=== PATIENT | female | born 1985 | race African-American/Black ===

== ENCOUNTER 2019-02-15 13:32 | Inpatient (IN) | payer OTHER ==
[2019-02-15] MEDS ORDERED: BICITRA PO ONE (13:47)
[2019-02-15] MEDS ORDERED: PEPCID IV ONE ×2 (13:47→16:01)
[2019-02-15] MEDS ORDERED: REGLAN IV ONE (13:47)
--- NOTE | 2019-02-15 13:52 | History and Physical Report ---
History of Present Illness Date of examination: 02/15/19 Date of admission: 02/15/19 13:32 Chief complaint: sent from [facility] for delivery History of present illness: Pt is a 33 year old female primigravida JUAN 02/23/19 at 38w6d with known breech presentation who presents from [facility] for delivery secondary to oligohydramnios. She reports good movement and denies vaginal bleeding or leakage of fluid. She has had care at [facility] since transfer into care at 18 wks with comanagement by [facility] complicated by gestational diabetes A1, second trimester bleeding, malpresentation, IUGR which has resolved since 11/03/18 (most recent EFW 2234g (17%ile) on 01/18/19). She is GBS negative. Past History Past Medical History: diabetes (gestational, diet controlled ) Past Surgical History: no surgical history Family/Genetic History: none Social history: no significant social history, - Obstetrical History Expected Date of Delivery: 02/23/19 Actual Gestation: 38 Week(s) 6 Day(s) : 1 Medications and Allergies Allergies Allergy/AdvReac Type Severity Reaction Status Date / Time No Known Allergies Allergy Unverified 09/11/18 11:07 Home Medications Medication Instructions Recorded Confirmed Last Taken Type Pnv Plus Multivit Tab 1 bottle PO ONCE 02/15/19 02/15/19 02/15/19 History Active Meds: Active Medications Citric Acid/Sodium Citrate (Bicitra) 30 ml PO ONCE ONE Stop: 02/15/19 13:48 Famotidine (Pepcid) 20 mg IV ONCE ONE Stop: 02/15/19 13:48 Oxytocin/Sodium Chloride (Pitocin/Ns 20 Unit/1000ml Drip) 20 units in 1,000 mls @ 0 mls/hr IV TITR MARCIANO Lactated Ringer's (Lactated Ringers) 1,000 mls @ 2,250 mls/hr IV PREOP MARCIANO Stop: 02/16/19 14:27 Cefazolin Sodium (Ancef/Sterile Water 2 Gm/20 Ml) 2 gm in 20 mls @ 80 mls/hr IV PREOP NR; Protocol Metoclopramide HCl (Reglan) 10 mg IV ONCE ONE Stop: 02/15/19 13:48 Review of Systems All systems: negative - Physical Exam Breasts: Positive: deferred Abdomen: Positive: soft (gravid) Genitourinary (Female): Positive: normal external genitalia Uterus: Positive: enlarged (gravid ) Extremities: Positive: edema (trace ) - Obstetrical FHR: auscultation normal Uterine Contraction Monitor Mode: External Uterine Contraction Pattern: Absent Uterine Tone Measurement Phase: Resting Results All other labs normal. Assessment and Plan A: IUP at 38w6d Oligohydramnios Malpresentation Gestational Diabetes A1 GBS Negative P: Accuchek Routine admission labs Proceed with primary section and other indicated procedures
[2019-02-15] MEDS ORDERED: PITOCin/NS 20 UNIT/1000ML DRIP 20 UNITS/1,000 ML BAG IV SCH ×2 (14:00→21:58)
[2019-02-15] MEDS ORDERED: ANCEF/STERILE WATER 2 GM/20 ML 2 GM/20 ML SYRINGE IV NR (14:00)
[2019-02-15] MEDS: LACTATED RINGERS 1,000 ML IV SCH ×2 (14:28→15:26)
[2019-02-15 14:55] LABS: Basophils % (Auto) 0.3 % (0.0-1.8); Eosinophils # (Auto) 0.1 K/mm3 (0.0-0.4); Eosinophils % (Auto) 0.8 % (0.0-4.3); Hematocrit 42.5 % (30.3-42.9); Hemoglobin 14.8 gm/dl (10.1-14.3); Lymphocytes # (Auto) 1.8 K/mm3 (1.2-5.4); Lymphocytes % (Auto) 24.5 % (13.4-35.0); Mean Corpuscular HGB Conc 35 % (30-34); Mean Corpuscular Volume 94 fl (79-97); Monocytes # (Auto) 0.4 K/mm3 (0.0-0.8); Monocytes % (Auto) 5.8 % (0.0-7.3); Platelet Count 223 K/mm3 (140-440); Red Blood Count 4.53 M/mm3 (3.65-5.03); Red Cell Distribution Width 13.5 % (13.2-15.2)
[2019-02-15] MEDS ORDERED: BICITRA ONE (16:00)
[2019-02-15] MEDS ORDERED: REGLAN ONE (16:01)
--- NOTE | 2019-02-15 16:11 | Anesthesia Consultation ---
Anesthesia Consult and Med Hx Date of service: 02/15/19 - Airway Anesthetic Teeth Evaluation: Good ROM Head & Neck: Adequate Mental/Hyoid Distance: Adequate Mallampati Class: Class II Intubation Access Assessment: Probably Good - Pulmonary Exam CTA: Yes - Cardiac Exam Cardiac Exam: RRR - Pre-Operative Health Status ASA Pre-Surgery Classification: ASA3 Proposed Anesthetic Plan: Spinal - Pulmonary Hx Asthma: No COPD: No Hx Pneumonia: No - Cardiovascular System Hx Hypertension: No - Central Nervous System Hx Seizures: No Hx Psychiatric Problems: No - Endocrine Hx Renal Disease: No Hx End Stage Renal Disease: No Hx Non-Insulin Dependent Diabetes: Yes (Gestational) Hx Hypothyroidism: No Hx Hyperthyroidism: No - Hematic Hx Anemia: No Hx Sickle Cell Disease: No - Other Systems Hx Alcohol Use: No
--- NOTE | 2019-02-15 16:12 | Anesthesia Day of Surgery ---
Anesthesia Day of Surgery - Day of Surgery Patient Examined: Yes Patient H&P Reviewed: Yes Patient is NPO: Yes
[2019-02-15] MEDS ORDERED: ZOFRAN ONE (16:27)
[2019-02-15] MEDS ORDERED: MARCAINE 0.5% INFILTRATI ONE (16:27)
[2019-02-15] MEDS ORDERED: DEXMEDETOMIDINE IV ONE (16:27)
[2019-02-15] MEDS ORDERED: NACL 0.9% IR ONE (17:00)
[2019-02-15] MEDS ORDERED: WATER FOR IRRIG STERILE IR ONE (17:00)
[2019-02-15] MEDS ORDERED: LACTATED RINGERS 1,000 ML ONE (17:12)
[2019-02-15] MEDS ORDERED: HESPAN 500 ML IV ONE (17:58)
--- NOTE | 2019-02-15 18:20 | Procedure Note ---
OB Delivery Note - Delivery Date of Delivery: 02/15/19 Surgeon: USAMA CALLEJAS Estimated blood loss: other (800 mL) - Section Preop diagnosis: breech, other (IUGR, Oligohydrmanios, GDMA1 ) Postop diagnosis: same section procedure: section, primary low transverse Disposition: PACU Complications: none Narrative: Please see operative report. - A at 1 minute: 8 at 5 minutes: 9 Infant Gender: Female (2380g (5lb 4oz) @ 1734 pm)
--- NOTE | 2019-02-15 18:20 | Operative Report ---
Operative Report Operative Report: Date of procedure: December Preoperative diagnosis: 1) IUP at 38w6d 2)Oligohydramnios 3) IUGR 4) Malpres entation 5) GDMA1 Postoperative diagnosis: Same Procedure:Primary low transverse section Surgeon: Tabby Kirk M.D. Anesthesia: Regional Findings: 1) Viable female , Apgars 8 and 9, weight 2380g, (5 lb 4 oz) in srinivasa breech presentation. 2) Normal-appearing uterus ovaries and tubes Estimated blood loss: 800 mL IV fluids:1000 mL Urine output: 100 mL, clear at the end of the procedure Drains: Nguyen to gravity Specimens: Placenta to pathology Complications:None.Counts correct x 3 Disposition: Stable to PACU Indication for procedure: Pt is a 33 year old female primigravida at 38w6d who was sent for delivery secondary to oligohydramnios, IUGR and malpresentation. Operation in detail: After the risks, benefits, alternatives and complications were explained to the patient she gave informed consent for the procedure. She was subsequently taken to the operating room where regional anesthesia was noted to be adequate. She was subsequently placed in the dorsal supine position with leftward tilt and prepped and draped in a normal sterile fashion. heart tones were noted to be in the 125s prior to incision. A timeout was performed. A Pfannenstiel skin incision was made with the knife and carried down to the layer of the fascia with the Bovie. The fascia was incised in the midline and the fascial incision was extended bilaterally with the Bovie. The fascial incision was then stretched. The rectus muscles were then in the midline. The peritoneum was then entered bluntly. The peritoneal incision was extended with good visualization of the bladder. The peritoneal incision was then stretched. An Ric retractor was placed. The bladder blade was placed. The vesicouterine peritoneum was grasped with smooth pickups and incised with Metzenbaum scissors. Metzenbaum scissors were used to extend the incision bilaterally. The bladder flap was then created digitally and the bladder blade was replaced. A transverse incision was made in the lower uterine segment with a knife and extended bilaterally with the bandage scissors. The buttocks were delivered up to the sacrum then the fetus was covered with a towel. The legs were each delivered, followed by the torsoe and arms and finally the head without difficulty. was bulb suctioned at delivery. The cord was clamped and cut and the was handed to NICU staff in attendance. Cord blood was collected. The placenta was then delivered manually. The uterus was then exteriorized and cleared of all clots and debris. The hysterotomy was then reapproximated with 0 Vicryl in a running locked fashion. A second layer of the same suture was used in imbricating fashion. An additional figure of eight was used at the left apex of the hysterotomy for additional hemostasis. The hysterotomy was inspected and hemostasis was noted. The gutters were irrigated and cleared of all clots and debris. The hysterotomy was again inspected and noted to be hemostatic. Surgicel was placed over the hysterotomy. The peritoneum was reapproximated with 2-0 Vicryl in a running fashion incorporating the rectus muscles. The rectus muscles were covered with Surgicel. The fascia was reapproximated with 0 Vicryl in a running fashion. The subcutaneous tissue was reapproximated with 3-0 Vicryl in a running fashion. The skin was reapproximated with 4-0 Vicryl in a subcuticular fashion. The incision was then covered with steri strips and a pressure dressing. The procedure was then ended. The patient tolerated the procedure well and was taken to the PACU in stable condition. All instrument, lap, and needle counts were correct 3.
[2019-02-15] MEDS ORDERED: PHENERGAN PR PRN (18:36)
[2019-02-15] MEDS ORDERED: NARCAN 0.4 MG/1 ML IV PRN ×2 (18:36→21:58)
[2019-02-15] MEDS ORDERED: PHENERGAN PO PRN (18:36)
[2019-02-15] MEDS ORDERED: ZOFRAN IV PRN ×2 (18:36→21:58)
[2019-02-15] MEDS ORDERED: NUBAIN IV PRN (18:36)
--- NOTE | 2019-02-15 18:36 | Post Anesthesia Evaluation ---
- Post Anesthesia Evaluation Patient Participated: Yes Airway Patent: Yes Stable Respiratory Function: Yes Nausea/Vomiting: No Temp > 96.8F: Yes Pain Manageable: Yes Adequeate Hydration: Yes Anesthesia Complications: No Block Receding Appropriately: Yes
[2019-02-15] MEDS: TYLENOL PO SCH (19:00)
[2019-02-15] MEDS ORDERED: IBUPROFEN PO SCH (19:00)
[2019-02-15] MEDS ORDERED: LANSINOH TP PRN (21:58)
[2019-02-15] MEDS ORDERED: MORPHINE IV PRN ×2 (21:58)
[2019-02-15] MEDS ORDERED: D5LR 1,000 ML IV SCH (21:58)
[2019-02-15] MEDS ORDERED: MILK OF MAGNESIA PO PRN (21:58)
[2019-02-15] MEDS ORDERED: SODIUM CHLORIDE FLUSH SYRINGE 10 ML IV PRN (21:58)
[2019-02-15] MEDS ORDERED: TUCKS PAD TP PRN (21:58)
[2019-02-15] MEDS ORDERED: TYLENOL PO PRN (21:58)
[2019-02-15] MEDS ORDERED: MYLICON PO PRN (21:58)
[2019-02-16] MEDS: TORADOL IV SCH ×3 (00:16→10:30)
[2019-02-16] MEDS: ANCEF/NS 1 GM/50 ML 1 GM/50 ML BAG IV SCH ×2 (00:27→08:28)
[2019-02-16] MEDS: TYLENOL PO SCH ×3 (01:00→13:00)
[2019-02-16 06:10] LABS: Hematocrit 32.2 % (30.3-42.9)
[2019-02-16] MEDS: FEOSOL PO SCH (10:30)
--- NOTE | 2019-02-16 12:44 | Progress Note ---
Assessment and Plan A/P POD1 s/p csec doine well DBD normal routine pP care Subjective - Subjective Date of service: 02/16/19 Principal diagnosis: s/p cse Patient reports: appetite normal, voiding normally, pain well controlled, flatus, ambulating normally [place]: doing well Objective - Vital Signs Latest vital signs: Vital Signs Temp Pulse Resp BP BP Pulse Ox 02/16/19 07:31 99.1 F 79 18 88/34 02/16/19 04:00 98 F 60 16 99/67 02/15/19 23:30 98.4 F 78 18 96/63 02/15/19 20:15 98.5 F 72 18 92/62 98 02/15/19 19:15 98.4 F 64 52 H 100/55 100 02/15/19 19:00 97.8 F 65 13 96/57 100 02/15/19 18:45 64 18 84/57 100 02/15/19 18:40 62 18 93/56 99 02/15/19 18:35 63 18 84/51 100 02/15/19 18:30 62 18 86/39 100 02/15/19 16:18 62 100 02/15/19 16:13 68 99 02/15/19 16:08 68 100 02/15/19 16:03 63 100 02/15/19 15:58 63 100 02/15/19 15:53 70 99 02/15/19 15:48 67 99 02/15/19 15:43 65 99 02/15/19 15:38 64 99 02/15/19 15:33 64 99 02/15/19 14:03 97.3 F L 72 20 107/69 100 02/15/19 14:00 72 107/69 02/15/19 13:57 66 100 02/15/19 13:52 62 100 Intake and Output 02/15/19 02/16/19 02/16/19 23:59 07:59 15:59 Intake Total 1000 530 Output Total 100 400 Balance 900 130 Intake: IV 1000 50 ANCEF/NS 1 GM/50 ML 1 gm 50 In 50 ml @ 100 mls/hr IV Q8H [facility] Rx#:[id number] Oral 480 Output: Urine 100 400 Indwelling Catheter 400 Other: Total, Intake Amount 480 Total, Output Amount 400 Estimated Blood Loss 800 - Exam Breasts: Present: normal Cardiovascular: Present: Regular rate, Normal S1 Lungs: Present: Clear to auscultation, Normal air movement Abdomen: Present: normal appearance, soft, normal bowel sounds. Absent: distention, tenderness, guarding Vulva: both: normal Uterus: Present: normal, firm, fundal height below umbilicus. Absent: bogginess, tenderness Extremities: Present: normal Deep Tendon Reflex Grade: Normal +2 Incision: Present: normal, dry, intact - Labs Labs: Abnormal lab results 02/15/19 02/15/19 Range/Units 14:00 14:46 Hgb 14.8 H (10.1-14.3) gm/dl MCH 33 H (28-32) pg MCHC 35 H (30-34) % POC Glucose 66 L (70-105)
[2019-02-16] MEDS: PERCOCET 5/325 PO PRN ×2 (13:17→19:46)
[2019-02-16] MEDS ORDERED: M-M-R II VACCINE SUB-Q ONE (18:26)
[2019-02-17] MEDS: IBUPROFEN PO PRN ×4 (00:06→18:03)
[2019-02-17] MEDS ORDERED: BOOSTRIX IM ONE (06:00)
--- NOTE | 2019-02-17 08:47 | Progress Note ---
Assessment and Plan POD2 s/p primary LTCS Labs and vital signs stable Needs abdominal binder Discharge to home tomorrow Subjective - Subjective Date of service: 02/17/19 Principal diagnosis: s/p csec Interval history: Pt is POD2 s/p primary LTCS for oligohydramnios and breech presentation. Patient reports: appetite normal, voiding normally, pain well controlled, flatus, ambulating normally : doing well, bottle feeding Objective - Vital Signs Latest vital signs: Vital Signs Temp Pulse Resp BP 02/17/19 00:00 98.8 F 74 18 99/67 02/16/19 16:41 97.9 F 66 18 92/56 Intake and Output 02/16/19 02/17/19 02/17/19 23:59 07:59 15:59 Intake Total 780 200 Output Total 1500 Balance -720 200 Intake: Oral 480 200 Intake, Free Water 300 Output: Urine 1500 Void 1500 Other: Total, Intake Amount 480 200 Total, Output Amount 1500 # Voids Void 1 1 - Exam Lungs: Present: Normal air movement Abdomen: Present: normal appearance, soft Uterus: Present: normal, firm, fundal height below umbilicus Extremities: Present: normal Incision: Present: dressed
[2019-02-17] MEDS: FEOSOL PO SCH (09:32)
[2019-02-17] MEDS: PERCOCET 5/325 PO PRN (23:30)
[2019-02-18] MEDS: IBUPROFEN PO PRN (05:33)
--- NOTE | 2019-02-18 09:05 | Progress Note ---
Assessment and Plan A: POD#3 s/p primary at term secondary to IUGR, Oligohydramnios and Malpresentation P: Discharge later today with follow up in [address] Kirk for incision check. Subjective - Subjective Date of service: 02/18/19 Principal diagnosis: s/p csec, gestational diabetes Interval history: No overnight events. + flatus. No Bowel movement. Tolerating regular diet. Patient reports: appetite normal, voiding normally, pain well controlled, flatus, ambulating normally, no bowel movement [place]: doing well Objective - Vital Signs Latest vital signs: Vital Signs Temp Pulse Resp BP Pulse Ox 02/18/19 06:33 18 02/18/19 05:33 18 02/18/19 00:30 18 02/17/19 23:31 97.9 F 77 18 91/55 95 02/17/19 23:30 18 02/17/19 17:07 98.1 F 85 18 107/65 98 Intake and Output 02/17/19 02/18/19 02/18/19 22:59 06:59 14:59 Intake Total 240 360 Balance 240 360 Intake: Intake, Free Water 240 360 Other: # Voids Void 3 1 - Exam Breasts: Present: deferred Cardiovascular: Present: Regular rate Lungs: Present: Clear to auscultation Abdomen: Present: soft, distention (mild ), normal bowel sounds Uterus: Present: fundal height below umbilicus Extremities: Present: normal Incision: Present: intact
--- NOTE | 2019-02-18 09:09 | Discharge Summary ---
Providers - Providers Date of Admission: 02/15/19 13:32 Date of discharge: 02/18/19 Attending physician: USAMA CALLEJAS Primary care physician: USAMA CALLEJAS Hospitalization Reason for admission: section (IUGR, Oligohydramnios, Malpresentation ) Delivery: Procedure: section, primary low transverse Procedure details: Please see operative report. Incision: intact Other procedures: none complications: none Discharge diagnosis: IUP at term delivered baby: female Hospital course: Pt was admitted for primary section at 38 wks secondary to oligohydramnios, IUGR and malpresentation which she tolerated well. Her postoperative course was uncomplicated and she met discharge criteria on POD#3. She will follow up in 2 wks in the office for an incision check. Condition at discharge: Stable Disposition: DC-01 TO HOME OR SELFCARE - Discharge Diagnoses (1) Term of female Status: Acute (2) S/P section Status: Acute (3) IUGR (intrauterine growth restriction) Status: Acute (4) Oligohydramnios in third trimester Status: Acute Qualifiers: Fetus number: single or unspecified fetus Qualified Code(s): O41.03X0 - Oligohydramnios, third trimester, not applicable or unspecified (5) Malpresentation of fetus Status: Acute Qualifiers: malpresentation type: breech Fetus number: single or unspecified fet us Qualified Code(s): O32.1XX0 - Maternal care for breech presentation, not applicable or unspecified (6) Gestational diabetes Status: Acute Qualifiers: Gestational diabetes mellitus control: diet-controlled Trimester: third trimester Qualified Code(s): O24.410 - Gestational diabetes mellitus in , diet controlled Plan - Discharge Medications Prescriptions: Ferrous Sulfate [Feosol 325 MG tab] 325 mg PO BID #60 tablet Ibuprofen [Motrin] 800 mg PO Q8HR PRN #30 tablet PRN Reason: Pain, Moderate (4-6) oxyCODONE /ACETAMINOPHEN [Percocet 5/325] 1 tab PO Q6HR PRN #40 tablet PRN Reason: Pain oxyCODONE /ACETAMINOPHEN [Percocet 5/325] 1 tab PO Q6HR PRN #30 tablet PRN Reason: Pain oxyCODONE /ACETAMINOPHEN [Percocet 5/325] 1 tab PO Q6HR PRN #40 tablet PRN Reason: Pain - Provider Discharge Summary Activity: routine, no sex for 6 weeks, no heavy lifting 4 weeks, no strenuous exercise Diet: routine Instructions: routine Additional instructions: [] Smoking cessation referral if applicable(refer to patient education folder for contact #) [] Refer to [facility]'s [facility] Booklet Call your doctor immediately for: * Fever > 100.5 * Heavy vaginal bleeding ( >1 pad per hour) * Severe persistent headache * Shortness of breath * Reddened, hot, painful area to leg or breast * Drainage or odor from incision. * Keep incision clean and dry at all times and follow doctor's instructions regarding bathing/showering - Follow up plan Follow up: USAMA CALLEJAS MD [Primary Care Provider] - 03/01/19 (Please call to schedule your postoperative appt )
[2019-02-18] MEDS ORDERED: MILK OF MAGNESIA PO SCH (09:30)
[2019-02-18] MEDS: FEOSOL PO SCH (12:41)
[2019-02-18] MEDS: PERCOCET 5/325 PO PRN (12:42)
[2019-02-18 13:19] VITALS: BP 117/75
== END 2019-02-18 15:15 | disposition home or self-care (01) | DRG 787 ==
LOC: APU 13:32 → OB 20:32
PROVIDERS: ADMIT Obstetrics & Gynecology; ATTEND Obstetrics & Gynecology
PROC: 10D00Z1 Extraction of Products of Conception, Low, Open Approach (ICD-10-PCS; principal; 2019-02-15)
PROC: 3E0234Z Introduction of Serum, Toxoid and Vaccine into Muscle, Percutaneous Approach (ICD-10-PCS; 2019-02-16)
DX: O32.1XX0 Maternal care for breech presentation, not applicable or unspecified (principal); O41.03X0 Oligohydramnios, third trimester, not applicable or unspecified; O24.420 Gestational diabetes mellitus in childbirth, diet controlled; O36.5930 Maternal care for other known or suspected poor fetal growth, third trimester, not applicable or unspecified; Z3A.38 38 weeks gestation of pregnancy; Z37.0 Single live birth; Z23 Encounter for immunization
CPT/HCPCS: 36415; 82962; 85014; 85018; 85025; 86592; 86850; 86900; 86901; 88305; 88307; 90715; G0378; J0690; J1885; J2270; J2405; J2590; J2765; J3490; J7120; J7121